=== PATIENT | male | born 1950 | race American Indian/Alaskan Native ===

== ENCOUNTER 2019-09-07 16:05 | Outpatient (CLI) | payer MEDICARE, OTHER ==
--- NOTE | 2019-09-07 17:03 | Vascular Lab Report ---
DUPLEX DOPPLER LOWER EXTREMITY VEINS, LEFT INDICATION: EDEMA. TECHNIQUE: Duplex doppler imaging was performed through the veins of the left lower extremity using venous compr ession and other maneuvers. COMPARISON: None available. FINDINGS: Common femoral vein: Negative. Superficial femoral vein: Negative. Popliteal vein: Negative. Calf veins: Negative. Additional findings: None. IMPRESSION: Negative for DVT. Signer Name: Jaguar Burnette MD Signed: 09/07/2019 4:59 PM Workstation Name: [id number]
== END 2019-09-07 16:06 | disposition home or self-care (01) ==
LOC: VAS 16:05 → US 16:05 → VAS 16:06
PROVIDERS: ATTEND Internal Medicine Cardiovascular Disease
DX: R60.0 Localized edema (principal); I10 Essential (primary) hypertension

== ENCOUNTER 2019-11-14 13:22 | Emergency (ER) | payer MEDICARE, OTHER ==
--- NOTE | 2019-11-14 14:56 | Event Note ---
ED Screening Note Date of service: 11/14/19 Time: 14:52 ED Screening Note: 69 y o male s/p angioplasty of left leg on pain meds states went out drinking last night now complaining of abd pain and vomitting This initial assessment/diagnostic orders/clinical plan/treatment(s) is/are subject to change based on patients health status, clinical progression and re- assessment by fellow clinical providers in the ED. Further treatment and workup at subsequent clinical providers discretion. Patient/guardian urged not to elope from the ED as their condition may be serious if not clinically assessed and managed. Initial orders include: labs ivf, pain control ua,uds main side eval
[2019-11-14 15:28] LABS: Hematocrit 42.9 % (35.5-45.6); Hemoglobin 14.1 gm/dl (11.8-15.2); Mean Corpuscular HGB Conc 33 % (32-34); Mean Corpuscular Volume 90 fl (84-94); Platelet Count 402 K/mm3 (140-440); Red Blood Count 4.75 M/mm3 (3.65-5.03); Red Cell Distribution Width 15.9 % (13.2-15.2)
[2019-11-14] MEDS ORDERED: ONDANSETRON 4 MG ODT TAB PO ONE (15:35)
[2019-11-14 15:41] LABS: INR 0.97 (0.87-1.13)
[2019-11-14 15:42] LABS: Partial Thromboplastin Time 31.5 Sec. (24.2-36.6)
[2019-11-14 15:43] LABS: Alanine Aminotransferase 22 units/L (7-56); Albumin 5.2 g/dL (3.9-5); BUN/Creatinine Ratio 18; Blood Urea Nitrogen 21 mg/dL (9-20); Calcium 10.6 mg/dL (8.4-10.2); Hemolysis Index 8
[2019-11-14 15:47] LABS: Basophils # (Auto) 0.1 K/mm3 (0.0-0.1); Lymphocytes # (Auto) 1.7 K/mm3 (1.2-5.4); Lymphocytes % (Auto) 13.2 % (13.4-35.0); Monocytes # (Auto) 0.6 K/mm3 (0.0-0.8); Monocytes % (Auto) 4.7 % (0.0-7.3)
--- NOTE | 2019-11-14 17:00 | Cat Scan Report ---
CT ABDOMEN AND PELVIS WITHOUT CONTRAST INDICATION: Mid abdominal pain. COMPARISON: No relevant prior imaging study available. TECHNIQUE: Axial, coronal and sagittal CT imaging of the abdomen and pelvis was performed without co ntrast. Lack of intravenous contrast limits evaluation of the vascular and solid organs. All CT sca ns at this location are performed using CT dose reduction for ALARA by means of automated exposure co ntrol. FINDINGS: LOWER CHEST: No significant abnormality. LIVER: Multiple probable cysts are seen measuring up to 1.7 cm posteriorly along the right hepatic lo be. No additional significant abnormality. BILIARY: No significant abnormality. PANCREAS: No significant abnormality. SPLEEN: No significant abnormality. ADRENALS: No significant abnormality. KIDNEYS AND URETERS: There are multiple probable bilateral renal cysts measuring up to 2.7 cm along t he left lower renal pole and 2.2 cm along the right upper renal pole. No additional significant abnor mality. GI TRACT: No significant abnormality of the stomach or small bowel. Generalized colonic diverticulosi s is noted without evidence of diverticulitis. Unremarkable appendix. PERITONEUM: No free fluid. No free air. No fluid collection. LYMPH NODES: No significant adenopathy. VASCULATURE: The aorta is normal in caliber with diffuse atherosclerosis. Stents have been previously placed along the right external iliac artery and the left external iliac, common femoral and superfi cial femoral arteries. Probable postoperative changes are noted along the left common femoral artery. URINARY BLADDER: No significant abnormality. REPRODUCTIVE ORGANS: Brachytherapy seeds are seen within and surrounding the prostate gland. No addit ional significant abnormality. ADDITIONAL FINDINGS: None. SKELETAL SYSTEM: No acute abnormality. There is osteopenia/osteoporosis with mild degenerative change s along the thoracic spine. 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 IMPRESSION: 1. No acute abnormality of the abdomen or pelvis. 2. Probable bilateral renal cysts. A nonemergent renal ultrasound would be helpful for further evalua tion. 3. Additional findings as above. Signer Name: Surinder Alegre MD Signed: 11/14/2019 4:56 PM Workstation Name: [id number]
[2019-11-14] MEDS ORDERED: PANTOPRAZOLE 40 MG INJ IV ONE (22:28)
[2019-11-14] MEDS ORDERED: ONDANSETRON 4 MG/2 ML INJ IV ONE ×2 (22:28→23:23)
--- NOTE | 2019-11-14 22:31 | Emergency Department Report ---
ED Abdominal Pain HPI - General Chief Complaint: Abdominal Pain Stated Complaint: TOOK PAINKILLERS AND ALCOHOL Time Seen by Provider: 11/14/19 22:24 Source: patient Mode of arrival: Ambulatory Limitations: No Limitations - History of Present Illness Initial Comments: Patient is 69 years old male with history of anal and lung cancer. Patient presented to the ER complaining of abdominal pain, nausea and vomiting and diarrhea started this afternoon. Patient stated that he took his gabapentin and then he drink alcohol and then immediately started to have nausea, vomiting and watery diarrhea. Patient denied any fever, chest pain or shortness of breath. Patient denied any hematemesis, hematochezia or melena. MD Complaint: abdominal pain -: This afternoon Location: epigastric Radiation: none Migration to: no migration Severity: moderate - Related Data Home Medications Medication Instructions Recorded Confirmed Last Taken Levothyroxine [Synthroid] 09/23/13 09/23/13 Unknown allopurinoL [Zyloprim] 09/23/13 09/23/13 Unknown Previous Rx's Medication Instructions Recorded Last Taken Type cephALEXin [Keflex] 500 mg PO TID #21 capsule 12/27/14 Unknown Rx Allergies Allergy/AdvReac Type Severity Reaction Status Date / Time No Known Allergies Allergy Unverified 09/23/13 11:32 ED Review of Systems ROS: Stated complaint: TOOK PAINKILLERS AND ALCOHOL Other details as noted in HPI Comment: All other systems reviewed and negative Constitutional: denies: chills, fever Respiratory: denies: cough, shortness of breath Cardiovascular: denies: chest pain, palpitations Gastrointestinal: abdominal pain, nausea, vomiting, diarrhea. denies: constipation, hematemesis, melena, hematochezia Musculoskeletal: denies: back pain Neurological: denies: headache, weakness, numbness, paresthesias, confusion ED Past Medical Hx - Past Medical History Previous Medical History?: Yes Hx of Cancer: Yes (lung, anal) Additional medical history: hypothyroid, gout, lung and anal cancer - Surgical History Past Surgical History?: Yes Additional Surgical History: angioplasty - Social History Smoking Status: Former Smoker Substance Use Type: Alcohol, Marijuana - Medications Home Medications: Home Medications Medication Instructions Recorded Confirmed Last Taken Type Levothyroxine [Synthroid] 09/23/13 09/23/13 Unknown History allopurinoL [Zyloprim] 09/23/13 09/23/13 Unknown History cephALEXin [Keflex] 500 mg PO TID #21 capsule 12/27/14 Unknown Rx ED Physical Exam - General Limitations: No Limitations General appearance: alert, in no apparent distress - Head Head exam: Present: atraumatic, normocephalic, normal inspection - Eye Eye exam: Present: normal appearance - ENT ENT exam: Present: normal exam, normal orophraynx, mucous membranes moist - Neck Neck exam: Present: normal inspection, full ROM. Absent: tenderness, meni ngismus, lymphadenopathy, thyromegaly - Respiratory Respiratory exam: Present: normal lung sounds bilaterally - Cardiovascular Cardiovascular Exam: Present: regular rate, normal rhythm, normal heart sounds - GI/Abdominal GI/Abdominal exam: Present: soft, normal bowel sounds. Absent: distended, tenderness, guarding, rebound, rigid, organomegaly, bruit, pulsatile mass, hernia - Extremities Exam Extremities exam: Present: normal inspection, full ROM, normal capillary refill. Absent: pedal edema, calf tenderness - Back Exam Back exam: Present: normal inspection, full ROM. Absent: CVA tenderness (R), CVA tenderness (L), muscle spasm, paraspinal tenderness, vertebral tenderness - Neurological Exam Neurological exam: Present: alert, oriented X3, CN II-XII intact, normal gait, reflexes normal - Psychiatric Psychiatric exam: Present: normal mood - Skin Skin exam: Present: warm, intact, normal color ED Course Vital Signs 11/14/19 11/14/19 11/14/19 13:51 14:50 22:14 Temperature 98.8 F 98.8 F Pulse Rate 86 86 91 H Respiratory 18 18 10 L Rate Blood Pressure 167/90 167/90 O2 Sat by Pulse 100 100 99 Oximetry 11/14/19 11/14/19 11/14/19 22:15 22:58 23:00 Temperature 98.8 F Pulse Rate 87 79 78 Respiratory 16 17 Rate Blood Pressure 182/99 186/98 162/89 O2 Sat by Pulse 99 93 Oximetry 11/15/19 11/15/19 11/15/19 00:00 00:04 01:00 Temperature Pulse Rate 106 H 102 H 105 H Respiratory 17 16 17 Rate Blood Pressure 164/89 164/89 169/88 O2 Sat by Pulse 99 99 100 Oximetry ED Medical Decision Making - Lab Data Result diagrams: 11/14/19 15:03 11/14/19 15:03 - Radiology Data Radiology results: report reviewed - Medical Decision Making Patient is 69 years old male with history of anal and lung cancer. Patient presented to the ER complaining of abdominal pain, nausea and vomiting and diarrhea started this afternoon. Patient stated that he took his gabapentin and then he drink alcohol and then immediately started to have nausea, vomiting and watery diarrhea. Patient denied any fever, chest pain or shortness of breath. Patient denied any hematemesis, hematochezia or melena. Patient received Zofran x2 and Reglan. Patient stated that he is feeling better, no nausea or vomiting. Labs reviewed and is unremarkable. Patient had a CT abdomen and pelvis with IV contrast which is unremarkable for acute finding. Patient advised to follow-up with his primary care physician in the next 2 to 3 days and to return to the ER if symptoms are not improved. Critical care attestation.: If time is entered above; I have spent that time in minutes in the direct care of this critically ill patient, excluding procedure time. ED Disposition Clinical Impression: Abdominal pain, Alcoholic gastritis Disposition: - TO HOME OR SELFCARE Is pt being admited?: No Condition: Stable Instructions: Abdominal Pain (ED), Gastritis (ED) Referrals: PRAKASH MC MD [Primary Care Provider] - 3-5 Days
[2019-11-14] MEDS ORDERED: WATER FOR INJ Sterile (PF) 10 ML ONE (22:32)
[2019-11-14] MEDS ORDERED: hydrALAZINE 20 MG/1 ML INJ IV ONE (22:52)
[2019-11-14 23:09] LABS: Bilirubin,Urine NEG (Negative); Blood,Urine MOD (Negative); Color,Urine Yellow (Yellow); Hyaline Casts,Urine 1 /LPF; Mucus,Urine FEW /HPF; Urobilinogen,Urine < 2.0 mg/dL (<2.0)
[2019-11-14 23:16] LABS: Amphetamine Screen,Urine PRESUMPTIVE NEGATIVE; Benzodiazepines Screen,Urine PRESUMPTIVE NEGATIVE; Cocaine Screen,Urine PRESUMPTIVE NEGATIVE; Opiate Screen,Urine PRESUMPTIVE NEGATIVE
[2019-11-14 23:29] LABS: Cannabinoid Screen,Urine PRESUMPTIVE POSITIVE; Methadone Screen,Urine PRESUMPTIVE POSITIVE
[2019-11-14] MEDS ORDERED: METOCLOPRAMIDE 10 MG/2 ML INJ ONE (23:58)
[2019-11-14] MEDS ORDERED: METOCLOPRAMIDE 10 MG/2 ML INJ IV ONE (23:58)
[2019-11-15] MEDS ORDERED: MORPHINE 4 MG/1 ML INJ IV ONE (01:41)
[2019-11-15 02:10] VITALS: BP 170/94
== END 2019-11-15 02:36 | disposition home or self-care (01) ==
LOC: ED 13:22
DX: K29.20 Alcoholic gastritis without bleeding (principal); Z98.61 Coronary angioplasty status; F12.90 Cannabis use, unspecified, uncomplicated; E03.9 Hypothyroidism, unspecified; Z87.891 Personal history of nicotine dependence; Z79.899 Other long term (current) drug therapy
CPT/HCPCS: 36415; 74176; 80053; 80307; 81001; 82150; 83690; 85025; 85610; 85730; 96374; 96375; 96376; 99284; C9113; J0360; J2270; J2405; J2765